=== PATIENT | female | born 1950 | race Caucasian/White ===

== ENCOUNTER 2017-11-19 09:56 | Emergency (ER) | payer MEDICARE, OTHER ==
[~2017-11-19] VITALS: Ht 157.5 cm; Wt 59.0 kg
[2017-11-19] MEDS ORDERED: normal saline 1000ML IV soln IVB ONE ×2 (11:00→16:15)
[2017-11-19] MEDS ORDERED: ondansetron/PF 4mg/2ml inj IV ONE ×2 (11:00→12:50)
[2017-11-19] MEDS: morphine 4 MG/ML inj SYRINge IV PRN ×2 (11:06→13:08)
[2017-11-19 11:35] LABS: BASOPHILS % (AUTO) 0.2 % (0-1); EOSINOPHILS % (AUTO) 0 % (0-6); HEMOGLOBIN 13.4 g/dl (12.0-16.0); LYMPHOCYTES # (AUTO) 0.8 X10'3 (1.1-4.8); LYMPHOCYTES % (AUTO) 4.3 % (21-51); MEAN CORPUSCULAR HEMOGLOBIN 31.9 PG (27.0-31.0); MEAN CORPUSCULAR HGB CONC 34.3 % (33.0-36.5); MEAN CORPUSCULAR VOLUME 93.1 FL (78-98); MEAN PLATELET VOLUME 8.1 FL (7.4-10.4); MONOCYTES # (AUTO) 1.2 X10'3 (0-0.9); MONOCYTES % (AUTO) 6.5 % (2-12); NEUTROPHILS # (AUTO) 16.8 X10'3 (1.8-7.7); PLATELET COUNT 380 X10'3 (140-440); RED BLOOD COUNT 4.19 X10'6 (4.20-5.60); RED CELL DISTRIBUTION WIDTH 14.9 % (11.5-14.5); WHITE BLOOD COUNT 18.8 X10'3 (4.5-11.0)
[2017-11-19 12:12] LABS: ALANINE AMINOTRANSFERASE 23 U/L (12-78); ALBUMIN 3.8 G/DL (3.4-5.0); ALBUMIN/GLOBULIN RATIO 0.8 (1.1-1.5); ALKALINE PHOSPHATASE 106 IU/L (46-116); ANION GAP 13 (8-16); ASPARTATE AMINO TRANSFERASE 13 U/L (10-37); BILIRUBIN,TOTAL 1.1 MG/DL (0.1-1.0); BLOOD UREA NITROGEN 11 MG/DL (7-18); BUN/CREATININE RATIO 13.3 (6.6-38.0); CALCIUM 10.9 MG/DL (8.5-10.1); CHLORIDE 94 MMOL/L (99-107); CREATININE 0.83 MG/DL (0.40-0.90); GLUCOSE 173 MG/DL (70-104); LIPASE 62 U/L (73-393); SODIUM 136 MMOL/L (135-145); TOTAL CARBON DIOXIDE 29.2 MMOL/L (24-32); TOTAL PROTEIN 8.4 G/DL (6.4-8.2); eGFR 69 ML/MIN
[2017-11-19 12:15] LABS: POTASSIUM 2.3 MMOL/L (3.5-5.1)
[2017-11-19] MEDS ORDERED: potass W/LIDOcaine 10mEq/100ml 100 ML IV STA ×2 (12:19)
[2017-11-19 12:23] LABS: CLARITY,URINE CLEAR (Clear); COLOR,URINE YELLOW (Yellow); GLUCOSE, URINE NEGATIVE (Neg); KETONES,URINE >=80 mg/dl (Neg); LEUKOCYTE ESTERASE ,URINE NEGATIVE (Neg); NITRITES, URINE NEGATIVE (Neg); OCCULT BLOOD,URINE LARGE (Neg); PH,URINE 6.5 (4.8-8.0); PROTEIN,URINE 30 mg/dl (Neg); UROBILINOGEN,URINE 0.2 E.U/dL (0.2-1.0)
[2017-11-19 12:25] LABS: UA COLLECTION TYPE CLN CATCH MIDSTREAM
[2017-11-19 12:36] LABS: AMORPHOUS URATES 1+; BACTERIA,URINE FEW /HPF (Neg); MUCUS STRANDS MODERATE /LPF (Neg); RBC,URINE 20-50 /HPF (0-2); SQUAMOUS EPITHELIAL CELL,UR MODERATE /LPF (FEW); WBC,URINE 0-4 /HPF (0-4)
[2017-11-19 12:38] LABS: COARSE GRANULAR CAST 0-3 /LPF (NEGATIVE)
[2017-11-19 12:41] LABS: FINE GRANULAR CAST 0-3 /LPF (NEGATIVE)
[2017-11-19] MEDS ORDERED: magnesium 1gm/100ml D5W IVPB 100 ML IV ONE (12:50)
[2017-11-19] MEDS ORDERED: morphine 4 MG/ML inj SYRINge IV PRN (12:50)
[2017-11-19] MEDS: diatr meglu/diatrizoate 30ml oral sol.-(3 dose) bottle PO SCH ×3 (13:08→14:44)
[2017-11-19 13:24] LABS: MAGNESIUM 1.5 MG/DL (1.5-2.4)
[2017-11-19] MEDS ORDERED: potass W/LIDOcaine 10mEq/100ml 100 ML IV ONE (13:30)
[2017-11-19] MEDS ORDERED: iohexol 300mg/ml 100ml inj. ONE (14:38)
[2017-11-19] MEDS ORDERED: metoclopramide 5 mg/ml inj IV ONE (14:55)
[2017-11-19] MEDS ORDERED: potassium Cl 20 mEq SR tablet PO STA (16:14)
[2017-11-19 17:21] VITALS: BP 140/83
[2017-11-19] MEDS ORDERED: POTA10TA19 PO (17:33)
== END 2017-11-19 17:48 | disposition home or self-care (01) ==
LOC: ER 09:56
DX: M54.5 Low back pain (principal); E87.6 Hypokalemia; I10 Essential (primary) hypertension; Z87.891 Personal history of nicotine dependence; Z88.0 Allergy status to penicillin; Z88.5 Allergy status to narcotic agent
CPT/HCPCS: 36415; 74177; 80053; 81001; 83690; 83735; 85025; 93005; 96361; 96365; 96366; 96368; 96375; 96376; 99285; J2270; J2405; J2765; J3480; J7030; Q9963; Q9967

== ENCOUNTER 2017-11-21 11:32 | Emergency (ER) | payer MEDICARE, OTHER ==
[~2017-11-21] VITALS: Ht 157.5 cm; Wt 58.8 kg
[~2017-11-21 11:32] MED LIST: POTA10TA19 PO
[2017-11-21 12:28] LABS: BASOPHILS % (AUTO) 0.1 % (0-1); EOSINOPHILS # (AUTO) 0.2 X10'3 (0-0.9); EOSINOPHILS % (AUTO) 1.1 % (0-6); HEMATOCRIT 38.7 % (35.0-45.0); HEMOGLOBIN 13.2 g/dl (12.0-16.0); LYMPHOCYTES # (AUTO) 1.6 X10'3 (1.1-4.8); MEAN CORPUSCULAR HEMOGLOBIN 31.8 PG (27.0-31.0); MEAN CORPUSCULAR HGB CONC 34.1 % (33.0-36.5); MEAN CORPUSCULAR VOLUME 93.2 FL (78-98); MEAN PLATELET VOLUME 6.7 FL (7.4-10.4); MONOCYTES # (AUTO) 1.3 X10'3 (0-0.9); MONOCYTES % (AUTO) 6.4 % (2-12); NEUTROPHILS # (AUTO) 17.2 X10'3 (1.8-7.7); NEUTROPHILS % (AUTO) 84.4 % (42-75); PLATELET COUNT 522 X10'3 (140-440); RED BLOOD COUNT 4.15 X10'6 (4.20-5.60); RED CELL DISTRIBUTION WIDTH 14.7 % (11.5-14.5); WHITE BLOOD COUNT 20.4 X10'3 (4.5-11.0)
[2017-11-21 12:33] LABS: CLARITY,URINE CLEAR (Clear); COLOR,URINE YELLOW (Yellow); GLUCOSE, URINE NEGATIVE (Neg); KETONES,URINE NEGATIVE (Neg); LEUKOCYTE ESTERASE ,URINE TRACE (Neg); NITRITES, URINE NEGATIVE (Neg); OCCULT BLOOD,URINE MODERATE (Neg); PROTEIN,URINE 30 mg/dl (Neg)
[2017-11-21 12:36] LABS: INR 1.1 INR; PROTHROMBIN TIME 11.3 SECONDS (9.0-12.0)
[2017-11-21 12:38] LABS: UA COLLECTION TYPE CLN CATCH MIDSTREAM
[2017-11-21 12:39] LABS: BACTERIA,URINE NONE SEEN /HPF (Neg); MUCUS STRANDS NONE SEEN /LPF (Neg); RBC,URINE 0-2 /HPF (0-2); SQUAMOUS EPITHELIAL CELL,UR FEW /LPF (FEW); WBC,URINE 0-4 /HPF (0-4)
[2017-11-21 12:42] LABS: ALANINE AMINOTRANSFERASE 25 U/L (12-78); ALBUMIN 3.5 G/DL (3.4-5.0); ALBUMIN/GLOBULIN RATIO 0.6 (1.1-1.5); ALKALINE PHOSPHATASE 109 IU/L (46-116); ANION GAP 10 (8-16); ASPARTATE AMINO TRANSFERASE 18 U/L (10-37); BILIRUBIN,TOTAL 0.8 MG/DL (0.1-1.0); BLOOD UREA NITROGEN 9 MG/DL (7-18); BUN/CREATININE RATIO 11.4 (6.6-38.0); CALCIUM 10.4 MG/DL (8.5-10.1); CHLORIDE 88 MMOL/L (99-107); CREATININE 0.79 MG/DL (0.40-0.90); GLUCOSE 137 MG/DL (70-104); SODIUM 127 MMOL/L (135-145); TOTAL CARBON DIOXIDE 28.6 MMOL/L (24-32); TOTAL PROTEIN 9.3 G/DL (6.4-8.2); eGFR 73 ML/MIN
[2017-11-21 12:44] LABS: POTASSIUM 2.8 MMOL/L (3.5-5.1)
[2017-11-21 13:03] LABS: MAGNESIUM 1.7 MG/DL (1.5-2.4)
[2017-11-21] MEDS ORDERED: ondansetron/PF 4mg/2ml inj IV ONE (13:05)
[2017-11-21] MEDS ORDERED: potassium 10mEq/100ml NS w/LIDOcaine (10mg/bag) IV ONE (13:05)
[2017-11-21 13:27] LABS: LIPASE 89 U/L (73-393)
[2017-11-21] MEDS: magnesium 1gm/100ml D5W IVPB 100 ML IV SCH ×2 (13:36→14:16)
[2017-11-21 13:39] LABS: ETHANOL < 0.010 GM/DL (0.0-0.010)
[2017-11-21] MEDS ORDERED: ONDA4TAB9 PO (14:13)
[2017-11-21] MEDS ORDERED: MAGN200T8 PO (14:13)
[2017-11-21] MEDS ORDERED: magnesium 1gm/100ml D5W IVPB 100 ML IV SCH (14:15)
[2017-11-21 15:17] VITALS: BP 140/89
[2017-11-21] MEDS ORDERED: normal saline 1000ml 1,000 ML IV ONE ×2 (15:20)
== END 2017-11-21 16:27 | disposition home or self-care (01) ==
LOC: ER 11:33
DX: E87.6 Hypokalemia (principal); D72.829 Elevated white blood cell count, unspecified; I10 Essential (primary) hypertension; Z88.0 Allergy status to penicillin; Z88.5 Allergy status to narcotic agent; Z79.899 Other long term (current) drug therapy
CPT/HCPCS: 36415; 71045; 80053; 80320; 81001; 83690; 83735; 84484; 85025; 85610; 87088; 93005; 96365; 96366; 96368; 96375; 99285; J2405; J3480